=== PATIENT | male | born 1980 | race Caucasian/White ===

== ENCOUNTER 2018-07-27 14:28 | Emergency (ER) | payer BC ==
[~2018-07-27] VITALS: Ht 182.9 cm; Wt 136.4 kg
[~2018-07-27 14:28] MED LIST: FLAGYL500 MG PO; LEVAQUIN 750MG750 M1 PO; NEXIUM 40MG40 MG PO; NORCO 325 MG-51 TAB PO; PRIL40; ZOFRAN 4MG T4 MG/TAB PO
[2018-07-27 14:44] VITALS: BP 136/89; TEMP 98.2
[2018-07-27] MEDS ORDERED: PREDNISONE20 MG PO (16:49)
[2018-07-27 16:59] VITALS: PULSE 77
== END 2018-07-27 17:08 | disposition home or self-care (01) ==
LOC: COL.ER 14:28
DX: T78.1XXA Other adverse food reactions, not elsewhere classified, initial encounter (principal); L50.9 Urticaria, unspecified; J38.4 Edema of larynx; K21.9 Gastro-esophageal reflux disease without esophagitis; F17.210 Nicotine dependence, cigarettes, uncomplicated; Z86.718 Personal history of other venous thrombosis and embolism
CPT/HCPCS: J1200; J2930; J7030

== ENCOUNTER 2022-04-16 06:46 | Day surgery (SDC) | payer OTHER ==
[2022-04-16] VITALS (7 sets, daily range): BP systolic 102–135; BP diastolic 60–86; PULSE 50–88; TEMP 97.7–97.8
[~2022-04-16] VITALS: Ht 182.9 cm; Wt 124.3 kg
[~2022-04-16 06:46] MED LIST changes: +PREDNISONE20 MG PO
[2022-04-16] MEDS ORDERED: PRIL40 PO (08:13)
[2022-04-16] MEDS ORDERED: COZAAR 25MG25 MG/TAB PO (08:14)
[2022-04-16] MEDS ORDERED: XYZAL5 MG PO (08:14)
[2022-04-16] MEDS ORDERED: OZEMPIC0.25 MG/0. SQ (08:15)
[2022-04-16] MEDS ORDERED: NORCO 325 MG-51 TAB PO (10:47)
--- NOTE | 2022-04-16 12:40 | NUR ---
1130 RETURNS TO ROOM 8 PER CART. AWAKE, ALERT. HOB ELEVATED 40 DEGREES. RESP UNLABORED. VITAL SIGNS OBTAINED. ABD SOFT. INCISIONS X 3 LEFT ABD WITHOUT REDNESS OR DRAINAGE. DENIES PAIN. HERE. CALL LIGHT AT SIDE. 1145 TOLERATES PO WATER AND SALTINE CRACKERS WITHOUT NAUSEA. 1200 AWAKE, DENIES NEEDS 1215 RETURNS AFTER PICKING UP PRESCRIPTION. PATIENT DENIES PAIN. ABD UNCHANGED. 1220 DISCHARGE INSTRUCTIONS REVIEWED. PATIENT AND VERBALIZE UNDERSTANDING. 1230 STANDS AT BEDSIDE. TOLERATES MOVEMENT WITHOUT NAUSEA. AT SIDE. PATIENT DRESSES SELF
== END 2022-04-16 12:40 | disposition home or self-care (01) ==
LOC: SDCO 06:46
DX: K42.0 Umbilical hernia with obstruction, without gangrene (principal); K66.0 Peritoneal adhesions (postprocedural) (postinfection); I10 Essential (primary) hypertension; K21.9 Gastro-esophageal reflux disease without esophagitis; F17.210 Nicotine dependence, cigarettes, uncomplicated; E66.9 Obesity, unspecified; Z68.37 Body mass index [BMI] 37.0-37.9, adult
CPT/HCPCS: C1781; J0690; J1100; J1885; J2405; J2704; J2710; J3010; J7120